=== PATIENT | female | born 1965 | race Caucasian/White ===

== ENCOUNTER → 2023-12-31 12:49 | Outpatient (REF) | payer BC, SELFPAY | LOC: HWRAD 12:49 | PROVIDERS: ATTENDING PHYSICIAN Physician Assistant Medical | DX: Z00.00 Encounter for general adult medical examination without abnormal findings (principal); Z78.0 Asymptomatic menopausal state; Z87.891 Personal history of nicotine dependence; Z12.31 Encounter for screening mammogram for malignant neoplasm of breast | CPT/HCPCS: 71271; 77063; 77067; 77080 ==

== ENCOUNTER → 2025-01-21 09:23 | Outpatient (REF) | payer BC, SELFPAY | LOC: HWWDC 09:23 | PROVIDERS: ATTENDING PHYSICIAN Physician Assistant Medical | DX: Z12.31 Encounter for screening mammogram for malignant neoplasm of breast (principal); F17.210 Nicotine dependence, cigarettes, uncomplicated | CPT/HCPCS: 71271; 77063; 77067 ==